=== PATIENT | male | born 1955 | race Caucasian/White ===

== ENCOUNTER 2019-09-13 18:44 | Emergency (ER) | payer BC, OTHER ==
[~2019-09-13] VITALS: Ht 185.4 cm; Wt 156.9 kg
[2019-09-13 18:56] VITALS: BP 130/70
== END 2019-09-13 20:05 | disposition home or self-care (01) ==
LOC: ED 18:44
DX: S61.210A Laceration without foreign body of right index finger without damage to nail, initial encounter (principal); W26.8XXA Contact with other sharp object(s), not elsewhere classified, initial encounter; Y93.89 Activity, other specified; Y92.89 Other specified places as the place of occurrence of the external cause; Y99.8 Other external cause status
CPT/HCPCS: A4570; J2001

== ENCOUNTER 2019-09-17 15:10 | Emergency (ER) | payer BC, OTHER ==
[~2019-09-17] VITALS: Ht 185.4 cm; Wt 155.1 kg
[2019-09-17 15:16] VITALS: BP 129/69; Ht 185.4 cm; Wt 155.1 kg
== END 2019-09-17 15:55 | disposition home or self-care (01) ==
LOC: ED 15:10
DX: S61.210D Laceration without foreign body of right index finger without damage to nail, subsequent encounter (principal); I10 Essential (primary) hypertension; E11.9 Type 2 diabetes mellitus without complications; X58.XXXD Exposure to other specified factors, subsequent encounter

== ENCOUNTER 2019-09-23 15:51 | Emergency (ER) | payer BC, OTHER ==
[~2019-09-23] VITALS: Ht 185.4 cm; Wt 156.9 kg
[2019-09-23 16:05] VITALS: BP 134/61; Ht 185.4 cm; Wt 156.9 kg
== END 2019-09-23 18:07 | disposition home or self-care (01) ==
LOC: ED 15:51
DX: S61.210D Laceration without foreign body of right index finger without damage to nail, subsequent encounter (principal); I10 Essential (primary) hypertension; E11.9 Type 2 diabetes mellitus without complications; Z98.890 Other specified postprocedural states; X58.XXXA Exposure to other specified factors, initial encounter; Y93.89 Activity, other specified; Y92.89 Other specified places as the place of occurrence of the external cause; Y99.8 Other external cause status